=== PATIENT | female | born 1965 | race American Indian/Alaskan Native ===

== ENCOUNTER 2018-06-14 15:54 | Emergency (ER) | payer OTHER ==
[2018-06-14 16:00] VITALS: BP 168/100
[2018-06-14] MEDS ORDERED: XYLOCAINE 1% MPF 5 mL INFILTRATI ONE (20:07)
[2018-06-14] MEDS ORDERED: NORCO 5/325 PO ONE (20:16)
[2018-06-14] MEDS ORDERED: IBUPROFEN PO ONE (20:16)
[2018-06-14] MEDS ORDERED: ZOFRAN ODT PO ONE (20:16)
--- NOTE | 2018-06-14 20:21 | Emergency Department Report ---
ED Extremity Problem HPI - General Chief complaint: Extremity Problem,Nontraumatic Stated complaint: LFT THUMB RING STUCKED/PAIN Time Seen by Provider: 06/14/18 19:35 Source: patient Mode of arrival: Ambulatory Limitations: No Limitations - History of Present Illness Initial comments: Patient is a 53-year-old -[place] female who presents to the ED with painful swollen left thumb after a metallic ring got stuck on the left thumb for the last 4 hours. Patient states that she tried to use soap in order to slide out the ring but that the swelling and the pain worsened and that it got stuck in the left thumb. Patient denies numbness, tingling or weakness of left thumb or left hand. MD Complaint: extremity pain (LEFT THUMB PAIN DUE TO RING STUCK), extremity swelling (Left thumb), joint swelling, joint paint (left thumb) -: Sudden, hour(s) (4), This afternoon Location: left (left thumb) History of Same: No -: No myalgia, No arthralgia, No fever, No associated dyspnea Radiation: none Severity scale (0 -10): 7 Quality: sharp, constant Consistency: constant Improves with: nothing Worsens with: palpation Associated Symptoms: denies other symptoms. denies: chest pain, shortness of breath, fever - Related Data Previous Rx's Medication Instructions Recorded Last Taken Type Cyclobenzaprine [Flexeril] 10 mg PO Q8H PRN #15 tablet 06/14/18 Unknown Rx Ibuprofen [Motrin] 600 mg PO Q8H PRN #20 tablet 06/14/18 Unknown Rx Allergies Allergy/AdvReac Type Severity Reaction Status Date / Time No Known Allergies Allergy Unverified 06/14/18 16:00 ED Review of Systems ROS: Stated complaint: LFT THUMB RING STUCKED/PAIN Other details as noted in HPI Comment: All other systems reviewed and negative Constitutional: no symptoms reported, see HPI. denies: diaphoresis, fever, malaise Eyes: as per HPI. denies: eye pain, eye discharge, vision change ENT: as per HPI. denies: ear pain, hearing loss, epistaxis Respiratory: no symptoms reported, see HPI. denies: SOB with exertion, SOB at rest Cardiovascular: as per HPI. denies: chest pain, palpitations, dyspnea on exertion Endocrine: no symptoms reported, see HPI. denies: flushing, intolerance to cold, increased urine, unexplained weight gain, unexplained weight loss Gastrointestinal: as per HPI. denies: abdominal pain, nausea, diarrhea, constipation, hematemesis Genitourinary: as per HPI. denies: frequency, hematuria Musculoskeletal: as per HPI, joint swelling (left thumb), arthralgia (left thumb). denies: back pain Skin: as per HPI. denies: rash, lesions, change in color, change in hair/nails Neurological: as per HPI. denies: headache, numbness, paresthesias Psychiatric: as per HPI Hematological/Lymphatic: as per HPI ED Past Medical Hx - Past Medical History Hx Hypertension: Yes - Surgical History Hx Cholecystectomy: Yes Additional Surgical History: 2 - Social History Smoking Status: Never Smoker Substance Use Type: None - Medications Home Medications: Home Medications Medication Instructions Recorded Confirmed Last Taken Type Cyclobenzaprine [Flexeril] 10 mg PO Q8H PRN #15 tablet 06/14/18 Unknown Rx Ibuprofen [Motrin] 600 mg PO Q8H PRN #20 tablet 06/14/18 Unknown Rx ED Physical Exam - General Limitations: No Limitations General appearance: alert, in no apparent distress - Head Head exam: Present: atraumatic, normocephalic, normal inspection - Eye Eye exam: Present: normal appearance, PERRL, EOMI Pupils: Present: normal accommodation - ENT ENT exam: Present: normal exam, normal orophraynx, mucous membranes moist, TM's normal bilaterally, normal external ear exam - Neck Neck exam: Present: normal inspection, full ROM. Absent: tenderness, lym phadenopathy - Respiratory Respiratory exam: Present: normal lung sounds bilaterally. Absent: respiratory distress, wheezes, rales, chest wall tenderness, accessory muscle use - Cardiovascular Cardiovascular Exam: Present: tachycardia, normal heart sounds - GI/Abdominal GI/Abdominal exam: Present: soft, normal bowel sounds. Absent: distended, tenderness, guarding, hypoactive bowel sounds - Rectal Rectal exam: Present: deferred - Extremities Exam Extremities exam: Present: tenderness (left thumb due to a ring stuck on ana m thumb), normal capillary refill, joint swelling (left thumb). Absent: full ROM - Expanded Upper Extremity Exam Left Hand Wrist exam: Present: tenderness (left thumb due to ring stuck on the thumb), swelling (left thumb due to ring stuck on the thumb). Absent: laceration, ecchymosis, deformity, erythema, subungual hematoma Neuro motor exam: Present: thumb opposition intact, thumb IP flexion intact, thumb adduction intact, fingers 2-5 abduction intact - Back Exam Back exam: Present: normal inspection, full ROM. Absent: tenderness, CVA tenderness (L), paraspinal tenderness - Neurological Exam Neurological exam: Present: alert, oriented X3, CN II-XII intact, normal gait, reflexes normal - Psychiatric Psychiatric exam: Present: normal affect - Skin Skin exam: Present: warm, dry, intact, normal color ED Course Vital Signs 06/14/18 15:58 Temperature 98 F Pulse Rate 109 H Respiratory 18 Rate Blood Pressure 168/100 O2 Sat by Pulse 97 Oximetry - Reevaluation(s) Reevaluation #1: 06/14/18 20:23 Patient is alert and oriented x 3 and is tachycardic and anxious, in pain but in no acute distress. Patient was treated for pain and the metallic ring cut from her left thumb successfully ED Medical Decision Making - Medical Decision Making The metallic ring was successful removed from the patient's left thumb after cutting the ring with a ring cutter. Patient tolerated procedure well. Patient was then treated for pain in the ED and discharged home on pain medications and advised to follow-up with her primary care physician in 3-5 days for reevaluation. Patient was advised to return to the ED immediately if symptoms get worse. - Differential Diagnosis Left thumb sprain, ring stuck in left thumb Critical care attestation.: If time is entered above; I have spent that time in minutes in the direct care of this critically ill patient, excluding procedure time. ED Disposition Clinical Impression: Tight ring on finger Left thumb sprain Qualifiers: Encounter type: initial encounter Sprain of finger site: interphalangeal joint Qualified Code(s): S63.622A - Sprain of interphalangeal joint of left thumb, initial encounter Disposition: TO HOME OR SELFCARE Is pt being admited?: No Does the pt Need Aspirin: No Condition: Stable Instructions: Finger Sprain (ED) Additional Instructions: TAKE MEDICATIONS FOR PAIN WITH FOOD, DRINK PLENTY OF FLUIDS AND FOLLOW UP WITH YOUR PRIMARY CARE PHYSICIAN ADVISED. Prescriptions: Cyclobenzaprine [Flexeril] 10 mg PO Q8H PRN #15 tablet PRN Reason: Spasms Ibuprofen [Motrin] 600 mg PO Q8H PRN #20 tablet PRN Reason: Pain Referrals: JAKE FAN MD [Primary Care Provider] - 3-5 Days Time of Disposition: 20:30 Print Language: MACEDONIAN
== END 2018-06-14 20:58 | disposition home or self-care (01) ==
LOC: ED 15:54
DX: S63.622A Sprain of interphalangeal joint of left thumb, initial encounter (principal); I10 Essential (primary) hypertension; W22.8XXA Striking against or struck by other objects, initial encounter; Y93.89 Activity, other specified; Y92.89 Other specified places as the place of occurrence of the external cause; Y99.8 Other external cause status
CPT/HCPCS: 99283; Q0162